=== PATIENT | male | born 1960 | race Two or more races ===

== ENCOUNTER 2016-11-04 17:33 | Emergency (ER) | payer MEDICAID ==
[~2016-11-04] VITALS: Ht 182.9 cm; Wt 81.6 kg
[2016-11-04 19:36] LABS: Basophils # (auto) 0 uL; CONDITION AutoValidated; Eosinophils # (auto) 0 uL; Eosinophils % (auto) 0.2 % (0.0-7.0); Hematocrit 42.3 % (41.0-53.0); Hemoglobin 14.1 g/dL (13.5-17.5); Lymphocytes # (auto) 1.6 uL; Lymphocytes % (auto) 13.3 % (10.0-50.0); Mean Corpuscular Hemoglobin 29.6 pg (28.0-32.0); Mean Corpuscular Hgb Conc. 33.5 g/dL (32.0-36.0); Mean Corpuscular Volume 88.3 fL (80.0-100.0); Mean Platelet Volume 8.2 fL (7.4-10.4); Monocytes # (auto) 1.3 uL; Monocytes % (auto) 10.7 % (0.0-12.0); Neutrophils # (auto) 9.1 uL; Neutrophils % (auto) 75.8 % (37.0-80.0); Platelet Count (auto) 255 10^3/uL (140-450); Red Cell Distribution Width 12.6 % (11.6-16.0)
[2016-11-04 20:01] LABS: Albumin 3.6 g/dL (3.4-5.0); Alkaline Phosphatase 88 U/L (45-117); Anion Gap 6 (5-15); Aspartate Aminotransferase 21 U/L (15-37); BUN/Creatinine Ratio 7.9; Bilirubin, Total 0.5 mg/dL (0.2-1.0); Blood Urea Nitrogen 13 mg/dL (7-18); Calcium 8.5 mg/dL (8.5-10.1); Carbon Dioxide 26 mmol/L (21-32); Chloride 105 mmol/L (98-107); GFR African American 56 mL/min; GFR Non-African American 46 mL/min; Glucose 112 mg/dL (74-106); Magnesium 2.3 mg/dL (1.6-2.6); Potassium 3.9 mmol/L (3.5-5.1); Sodium 137 mmol/L (136-145); Total Protein 7.7 g/dL (6.4-8.2)
[2016-11-05] MEDS ORDERED: MORPHINE SULF INJ 2 MG/ML SYRINGE 1ML IV ONE (02:45)
[2016-11-05] MEDS ORDERED: ONDANSETRON HCL 4 MG/2 ML VIAL IV ONE (02:45)
[2016-11-05 02:51] VITALS: BP 129/77
== END 2016-11-05 04:39 | disposition home or self-care (01) ==
LOC: ER 17:36
DX: R07.89 Other chest pain (principal); D72.829 Elevated white blood cell count, unspecified; R06.02 Shortness of breath
CPT/HCPCS: 36415; 71010; 80053; 83735; 84484; 85025; 93005; 96374; 96375; 99285; J2270; J2405